=== PATIENT | male | born 1995 | race Caucasian/White ===

== ENCOUNTER 2016-06-09 15:11 | Emergency (ER) | payer MEDICAID, OTHER ==
[~2016-06-09] VITALS: Ht 165.1 cm; Wt 143.2 kg
[2016-06-09 16:53] VITALS: BP 135/81
[2016-06-09] MEDS ORDERED: CEPHALEXIN MONOHYDRATE 500 MG CAPSULE PO ONE (17:30)
== END 2016-06-09 17:30 | disposition home or self-care (01) ==
LOC: EMS 15:12
DX: H00.14 Chalazion left upper eyelid (principal); H01.001 Unspecified blepharitis right upper eyelid; H01.002 Unspecified blepharitis right lower eyelid; E66.9 Obesity, unspecified; F12.90 Cannabis use, unspecified, uncomplicated; Z68.43 Body mass index [BMI] 50.0-59.9, adult
CPT/HCPCS: 99283

== ENCOUNTER 2017-03-31 07:00 | Emergency (ER) | payer OTHER ==
[~2017-03-31] VITALS: Ht 167.6 cm; Wt 140.9 kg
[2017-03-31 10:23] VITALS: BP 136/81
[2017-03-31 10:57] LABS: INFLUENZA TYPE A POSITIVE FOR TYPE A (NEGATIVE)
[2017-03-31 10:58] LABS: INFLUENZA TYPE B NEGATIVE FOR TYPE B (NEGATIVE)
== END 2017-03-31 11:13 | disposition home or self-care (01) ==
LOC: EMS 07:01
DX: J11.1 Influenza due to unidentified influenza virus with other respiratory manifestations (principal); J18.9 Pneumonia, unspecified organism; Z98.890 Other specified postprocedural states
CPT/HCPCS: 87804; 99284